=== PATIENT | male | born 1995 | race African-American/Black ===

== ENCOUNTER 2018-07-11 15:21 | Emergency (ER) | payer MEDICAID ==
[~2018-07-11] VITALS: Ht 188 cm; Wt 59.1 kg
[2018-07-11] MEDS ORDERED: LIDOCAINE/PF 1% 5 ML VIAL INJ ONE (17:00)
[2018-07-11] MEDS ORDERED: BACITRACIN 0.9 GM PACKET OINTMENT TP ONE (17:00)
[2018-07-11] MEDS ORDERED: PERTUSS(ACELL),DIPH,TET VAC/PF 0.5 ML VIAL IM ONE (17:00)
[2018-07-11 18:06] VITALS: BP 126/67
== END 2018-07-11 18:14 | disposition home or self-care (01) ==
LOC: EMS 15:23
DX: S01.111A Laceration without foreign body of right eyelid and periocular area, initial encounter (principal); W50.0XXA Accidental hit or strike by another person, initial encounter; Y93.67 Activity, basketball; Y92.89 Other specified places as the place of occurrence of the external cause; Y99.8 Other external cause status
CPT/HCPCS: 12013; 90471; 90715; 99283; J3490